=== PATIENT | female | born 1950 | race Caucasian/White ===

== ENCOUNTER → 2021-01-21 | Outpatient (CLI) | payer MEDICARE, BC, OTHER ==
--- NOTE | 2021-01-21 12:04 | REP ---
INDICATION: LT LEG PAIN SWELLING ? DVT COMPARISON: None. TECHNIQUE: Johnston scale and color Doppler evaluation left lower extremity using linear high frequency transducer. FINDINGS: Ultrasound examination of the left lower extremity deep venous structures from the common femoral vein through the calf/ankle to include the peroneal, and tibial veins demonstrates normal compressibility flow and wave patterns in response to respiration and augmentation. There is no evidence for deep venous thrombosis. Contralateral CFV is patent and normal. Area of bruising along the left posterior knee/calf with underlying thrombosed varicosities raising the possibility of thrombophlebitis. IMPRESSION: No evidence for deep venous thrombosis. Correlation is required as thrombophlebitis cannot be excluded. <Electronically signed by Sergei Lynch > 01/21/21 1200
== END ==
LOC: M RAD 11:18
PROVIDERS: ATTEND Internal Medicine
DX: R22.42 Localized swelling, mass and lump, left lower limb (principal)